=== PATIENT | male | born 1950 | race Caucasian/White ===

== ENCOUNTER → 2022-09-11 | Outpatient (CLI) | payer MEDICARE, SELFPAY ==
--- NOTE | 2022-09-11 | IMM_PTH ---
PATIENT: THOMAS PAL LOC: [facility] U#:[id number] AGE/SX: 72/M ROOM: RE09/11/[address]: Dr. Nilo Farrar MD : 1950 BED: DIS: 09/11/2022 SPEC #: [id number] RECD: 09/13/22 13:15 STATUS: KUNAL REDarlene #: [id number] CAROLINE: 09/11/22 00:[address]: Nilo Farrar DEPT: IMMUNOHISTOCHEMISTRY RECD BY: Brooke Madera Tissues: B - PROSTATE RIGHT C - PROSTATE RIGHT D - PROSTATE LEFT E - PROSTATE LEFT Procedures: 34BE12 (add) P40 (add) 34BE12 (initial) PHYSICIAN & INSTITUTION [place] [address] SPECIMEN INFORMATION: Tissue Source: B - Right mid, C - Right base, D - Left apex, E - Left mid Clinical Info: Elevated PSA Specimen Number: [id number] B-E CPT code: 05042, 53704 x7 METHODOLOGY: Deparaffinized sections of prefer/formalin-fixed tissue or PAP/DQ stained slides are incubated with monoclonal/polyclonal antibodies/oligonucleotide probes. Localization is made via biotin free immunoperoxidase method. Appropriate controls are performed and reacted as expected. Results on target cell population are indicated in the following table: RESULTS: ANTIBODY / CLONE RESULT Block B P40 (BC28) positive 34BE12 (34BE12) positive Block C P40 (BC28) positive 34BE12 (34BE12) positive Block D P40 (BC28) negative 34BE12 (34BE12) negative Block E P40 (BC28) negative 34BE12 (34BE12) negative These tests were developed and their performance characteristics determined by [facility]. They may not have been cleared or approved by the U.S. Food and Drug Administration. The FDA has determined that such clearance or approval is not necessary. The above immunohistochemical/dualISH markers are ordered and reviewed by the Pathologist. INTERPRETATION: B. Right prostate, mid, core biopsy: Focal high-grade prostatic intraepithelial neoplasia (HGPIN). C. Right prostate, base, core biopsy: Prostatic tissue, negative for malignancy. D. Left prostate, apex, core biopsy: Adenocarcinoma. E. Left prostate, mid, core biopsy: Adenocarcinoma. SJ:da 09/14/2022
--- NOTE | 2022-09-11 09:15 | PROSBIL_PTH ---
PATIENT: THOMAS PAL [facility] U#:[id number] AGE/SX: 72/M ROOM: RE09/11/[address]: Dr. Nilo Farrar MD : 1950 BED: DIS: 09/11/2022 SPEC #: [id number] RECD: 09/12/22 08:28 STATUS: KUNAL GONZÁLES #: [id number] CAROLINE: 09/11/22 09:[address]: Nilo Farrar DEPT: SURGICAL PATHOLOGY RECD BY: Katia Perez Tissues: A - PROSTATE RIGHT B - PROSTATE RIGHT C - PROSTATE RIGHT D - PROSTATE LEFT E - PROSTATE LEFT F - PROSTATE LEFT Procedures: PROSTATE BX HEADER OPERATION: Prostate biopsy PRE-OP DIAGNOSIS: Elevated PSA TISSUE SUBMITTED: A - Right apex, B - Right mid, C - Right base, D - Left apex, E - Left mid, F - Left base MICROSCOPIC DIAGNOSIS A. Right prostate, apex, core biopsy: Focal high-grade prostatic intraepithelial neoplasia (HGPIN). B. Right prostate, mid, core biopsy: Focal high-grade prostatic intraepithelial neoplasia (HGPIN). See comment. C. Right prostate, base, core biopsy: Prostatic tissue, negative for malignancy. See comment. D. Left prostate, apex, core biopsy: Prostatic adenocarcinoma. Collins grade: 3+3=6 Number of cores involved: 1/2 Proportion of tissue involved: <5% Perineural invasion: Not identified. Greatest tumor length: 0.2 cm, discontinuous. See comment. E. Left prostate, mid, core biopsy: Prostatic adenocarcinoma. Collins grade: 3+3=6 Number of cores involved: 1/2 Proportion of tissue involved: <5% Perineural invasion: Not identified. Greatest tumor length: 0.4 cm, discontinuous. Focal high-grade prostatic intraepithelial neoplasia (HGPIN). See comment. F. Left prostate, base, core biopsy: Prostatic tissue, negative for malignancy. SJ:da 09/13/2022 COMMENT B-E - Immunohistochemistry ([id number]) supports the above diagnosis. MICROSCOPIC DESCRIPTION Slides are reviewed. GROSS DESCRIPTION A - Received is one container designated prostate, right apex. The specimen consists of two elongated fragments of light hudson-white soft tissue each measuring 1.0 cm in length and 0.1 cm in diameter. The specimen is totally submitted in one cassette. B - Received is one container designated prostate, right mid. The specimen consists of two elongated fragments of light hudson-white soft tissue each measuring 1.5 cm in length and 0.1 cm in diameter. The specimen is totally submitted in one cassette. C - Received is one container designated prostate, right base. The specimen consists of two elongated fragments of light hudson-white soft tissue each measuring 1.5 cm in length and 0.1 cm in diameter. The specimen is totally submitted in one cassette. D - Received is one container designated prostate, left apex. The specimen consists of two elongated fragments of light hudson-white soft tissue each measuring 1.0 cm in length and 0.1 cm in diameter. The specimen is totally submitted in one cassette. E - Received is one container designated prostate, left mid. The specimen consists of two elongated fragments of light hudson-white soft tissue each measuring 1.5 cm in length and 0.1 cm in diameter. The specimen is totally submitted in one cassette. F - Received is one container designated prostate, left base. The specimen consists of two elongated fragments of light hudson-white soft tissue each measuring 2.0 cm in length and 0.1 cm in diameter. The specimen is totally submitted in one cassette. / AM:da 09/12/2022 TC:0 CPT: G0146
== END | disposition home or self-care (01) ==
LOC: LABSPEC 16:27
PROVIDERS: Referring Provider Urology; Visit Provider Urology
DX: R97.20 Elevated prostate specific antigen [PSA] (principal)
CPT/HCPCS: 88305; 88341; 88342; G0416

== ENCOUNTER → 2024-04-15 | Outpatient (CLI) | payer MEDICARE, SELFPAY ==
--- NOTE | 2024-04-15 13:20 | MRI_ITS ---
EXAMINATION: MR Prostate WO/W Contrast COMPARISON: None CLINICAL HISTORY: 74-year-old male with lower urinary tract symptoms and BPH TECHNIQUE: Standard prostate MR protocol was used before and after administration of 20 cc of IV Clariscan. FINDINGS: Prostate volume: 75 cc PSA density: Not provided Length of membranous urethra: 16 mm Post-biopsy hemorrhage: None Multiparametric MR evaluation: Heterogeneous appearance of the central gland is consistent with benign prostatic hyperplasia. Heterogeneous T2 hypointensity throughout the peripheral gland. Lesion 1: LOCATION - there is a 1.4 x 1.4 x 0.5 cm indistinct asymmetric focal T2 hypointense thickening in the right posterior transitional zone between mid gland and base. It is moderately bright on DWI and moderately dark on ADC map. T2 - 3 DWI - 3 DCE - inconclusive Overall PI-RADS v2 score = 3 Capsular margin and neurovascular bundle: Not involved Seminal vesicles: Not involved. Lymph nodes: No lymphadenopathy in the field of view. Bones: No suspicious lesions in the field of view. MRI/Pelvis W/WO Contrast IMPRESSION: 1.4 standard PI-RADS 3 lesion in the right posterior TZ between mid gland and base. - No evidence of macroscopic extracapsular extension. - No evidence of seminal vesicle invasion. - No lymphadenopathy. - No suspicious bone lesions. Benign prostatic hyperplasia and prostatitis. Electronically Signed: Rashawn Pedersen MD at 17:34 EDT ,
[2024-04-15 13:55] LABS: CREATININE FINGERSTICK < 1.0 mg/dL (0.70-1.30); EGFR FINGERSTICK > 60.0000 mL/min (>60)
== END | disposition home or self-care (01) ==
PROVIDERS: PCP Nurse Practitioner Family; Referring Provider Urology; Visit Provider Urology
DX: N40.1 Benign prostatic hyperplasia with lower urinary tract symptoms (principal)
CPT/HCPCS: 72197; A9575

== ENCOUNTER → 2025-05-18 | Outpatient (CLI) | payer MEDICARE, SELFPAY ==
--- NOTE | 2025-05-18 08:00 | PROSBIL_PTH ---
PATIENT: THOMAS PAL LOC: [facility] U#:[id number] AGE/SX: 75/M ROOM: RE05/18/[address]: Dr. Nilo Farrar MD : 1950 BED: DIS: 05/18/2025 SPEC #: [id number] RECD: 05/18/25 15:19 STATUS: KUNAL REQ #: [id number] CAROLINE: 05/18/25 08:[address]: Nilo Farrar DEPT: SURGICAL PATHOLOGY RECD BY: Zaid Nicolas ENTERED: 05/19/25 10:16 SP TYPE: PROST BX PADMINI DR: Dr. Livia Martinez, DO Tissues: A - PROSTATE RIGHT B - PROSTATE RIGHT C - PROSTATE RIGHT D - PROSTATE LEFT E - PROSTATE LEFT F - PROSTATE LEFT Procedures: PROSTATE BX Immunohistochemical Stains HEADER OPERATION: Prostate biopsy PRE-OP DIAGNOSIS: Elevated PSA TISSUE SUBMITTED: A - Right apex, B - Right mid, C - Right base, D - Left apex, E - Left mid, F - Left base MICROSCOPIC DIAGNOSIS A. Prostate, right, apex, biopsy: * Benign prostatic tissue (See note) Note: Immunohistochemical staining shows positive basal cell staining with little to no AMACR supporting the diagnosis. B. Prostate, right, mid, biopsy: * Atypical small acinar proliferation (See note) Note: Immunohistochemical staining shows some AMACR without basal cell staining supporting the diagnosis C. Prostate, right, base, biopsy: * Benign prostatic tissue D. Prostate, left, apex, biopsy: * Benign prostatic tissue E. Prostate, left, mid, biopsy: * Benign prostatic tissue F. Prostate, left, base, biopsy: * Prostatic adenocarcinoma, Beth score 3+3=6 (grade group 1) involving 2 of 2 cores and 20% of the tissue MICROSCOPIC DESCRIPTION Slides are reviewed. All matched controls reacted appropriately. These tests were developed and their performance characteristics determined by [facility]. They may not have been cleared or approved by the U.S. Food and Drug Administration.The FDA has determined that such clearance or approval is not necessary. The above immunohistochemical markers are viewed by the Pathologist. GROSS DESCRIPTION Received in 6 formalin containers labeled with the patient's name and date of . Designated as: A. "RA" are 2 hudson tissue cores, 1.4 cm and 1.9 cm in length by 0.1 cm in diameter. Entirely submitted in 1 cassette. B. "RM" are 2 hudson tissue cores, 1.4 cm and 2.2 cm in length by 0.1 cm in diameter. Entirely submitted in 1 cassette. C. "RB" is a hudson tissue core, 2.3 cm in length by 0.1 cm in diameter. Entirely submitted in 1 cassette. D. "LA" are 2 hudson tissue cores, 1.5 cm and 2.2 cm in length by 0.1 cm in diameter. Entirely submitted in 1 cassette. E. "LM" are 2 hudson tissue cores, each 1.9 cm in length by 0.1 cm in diameter. Entirely submitted in 1 cassette. F. "LB" are 2 hudson tissue cores, 1.8 cm and 2.0 cm in length by 0.1 cm in diameter. Entirely submitted in 1 cassette. OR 05/19/2025 CPT:37705r0,[id number]
== END | disposition home or self-care (01) ==
LOC: LABSPEC 15:30
PROVIDERS: PCP Family Medicine; Referring Provider Urology; Visit Provider Urology
DX: R97.20 Elevated prostate specific antigen [PSA] (principal)
CPT/HCPCS: 88305; 88342; G0416